=== PATIENT | male | born 1950 | race African-American/Black ===

== ENCOUNTER 2019-05-09 03:48 | Emergency (ER) | payer MEDICARE ==
[2019-05-09] MEDS ORDERED: NS(*) 0.9% 1000 ML BAG 1,000 ML IV ONE ×2 (03:54→06:20)
[2019-05-09] MEDS ORDERED: ONDANSETRON 4 MG/2 ML VIAL IVP ONE (03:55)
[2019-05-09] MEDS ORDERED: PANTOPRAZOLE SOD 40 MG IV VIAL IVP ONE (03:55)
--- NOTE | 2019-05-09 04:03 | ER Report ---
History and Physical Time Seen By MD: 03:57 HPI/ROS CHIEF COMPLAINT: Abdominal pain,? Bleeding ulcers HISTORY OF PRESENT ILLNESS: 68-year-old black male traveling from [place] to [place], [place] staying in a motel here in [place], has been sick for 3 days with severe upper abdominal pain with vomiting. Patient thinks his ulcers or bleeding. He has blood-tinged, clear emesis. Patient states he is a diabetic. EMS checked his fingerstick glucose at 223. Patient denies alcohol ingestion. EMS notes. Patient was clammy and diaphoretic on arrival. Patient denies history of cardiac disease. REVIEW OF SYSTEMS: Respiratory: No cough, no dyspnea. Cardiovascular: No chest pain, no palpitations. Gastrointestinal: As above Musculoskeletal: No back pain. Allergies: Coded Allergies: No Known Drug Allergies (Unverified , 05/09/19) Home Meds Active Scripts Oxycodone Hcl/Acetaminophen (PERCOCET 5-325 MG TABLET) 1 Each Tablet, 1 EACH PO Q4-6H PRN for PAIN, #10 Prov:KEKEJESSICA DO 05/09/19 Ondansetron 4 Mg Odt (ONDANSETRON 4 MG ODT) 4 Mg Tab.rapdis, 4 MG PO Q6H PRN for NAUSEA/VOMITING, #10 TAB Prov:JESSICA DAVIES Ok DO 05/09/19 Reported Medications Sucralfate (SUCRALFATE) 1 Gm/10 Ml Oral.susp, 10 ML PO Q6H 05/09/19 Metformin Hcl (METFORMIN HCL) 500 Mg Tablet, 1 TAB PO BID, TAB 05/09/19 Pantoprazole Sodium (PANTOPRAZOLE SODIUM) 40 Mg Tablet.dr, 40 MG PO QDAY PRN for GAS/HEARTBURN, TAB.SR 05/09/19 Past Medical/Surgical History Type II diabetes, only on metformin was previously on insulin, history of gastric ulcers on sucralfate and delgado protozoal. Hypertension Reviewed Nurses Notes: Yes Old Medical Records Reviewed: Yes Constitutional Vital Sign - Last 24 Hours 05/09/19 05/09/19 05/09/19 05/09/19 03:51 03:51 04:00 04:03 Temp 97.8 Pulse 93 ??? Resp 24 8 B/P (MAP) 192/114 182/122 (142) Pulse Ox 97 99 O2 Delivery Nasal Cannula O2 Flow Rate 4.0 05/09/19 05/09/19 05/09/19 05/09/19 04:18 04:30 04:30 04:33 Pulse 77 77 Resp 13 21 B/P (MAP) 166/94 (118) Pulse Ox 97 98 O2 Flow Rate 3.0 05/09/19 05/09/19 05/09/19 05/09/19 04:48 05:00 05:03 05:05 Pulse 68 81 68 Resp 18 20 16 B/P (MAP) 138/103 (115) Pulse Ox 99 90 99 05/09/19 05/09/19 05/09/19 05/09/19 05:10 05:25 05:30 05:40 Pulse 63 68 66 Resp 9 12 6 Pulse Ox 99 99 98 O2 Flow Rate 1.0 05/09/19 05/09/19 05/09/19 05/09/19 05:55 06:10 06:15 06:20 Pulse 79 79 75 76 Resp 11 16 11 10 Pulse Ox 92 94 93 89 05/09/19 05/09/19 05/09/19 05/09/19 06:25 06:30 06:35 06:38 Pulse 72 63 66 Resp 12 8 11 B/P (MAP) 135/104 (114) Pulse Ox 91 93 92 Physical Exam Vital signs stable, grossly hypertensive, afebrile General Appearance: The patient is alert, has no immediate need for airway protection and no current signs of toxicity. Moderate distress, actively vomiting. Blood-tinged watery fluid. Slightly pale appearing, skin: Dry HEENT: Pupils equal and round no injection. Anicteric sclera, oropharynx with mild erythema, no exudate or petechiae Respiratory: Chest is non tender, lungs are clear to auscultation. Cardiac: regular rate and rhythm Gastrointestinal: Abdomen is soft moderate epigastric tenderness, no masses, bowel sounds normal. Musculoskeletal: Neck: Neck is supple and non tender. Extremities have full range of motion and are non tender. No edema, no calf tenderness Skin: No rashes or lesions. DIFFERENTIAL DIAGNOSIS: After history and physical exam differential diagnosis was considered for abdominal pain including but not limited to appendicitis, cholecystitis, gastritis and urinary tract infection. Medical Decision Making Data Points Result Diagram: 05/09/19 0418 05/09/19 0418 Laboratory Hematology Test 05/09/19 04:18 05/09/19 06:40 Red Blood Count 5.12 M/uL (4.00-5.60) Mean Corpuscular Volume 83.6 fL (80.0-96.0) Mean Corpuscular Hemoglobin 27.5 pg (26.0-33.0) Mean Corpuscular Hemoglobin Concent 32.9 g/dL (32.0-36.0) Red Cell Distribution Width 18.1 % (11.5-14.5) Mean Platelet Volume 9.0 fL (7.2-11.1) Neutrophils (%) (Auto) 67.9 % (39.4-72.5) Lymphocytes (%) (Auto) 24.7 % (17.6-49.6) Monocytes (%) (Auto) 6.6 % (4.1-12.4) Eosinophils (%) (Auto) 0.1 % (0.4-6.7) Basophils (%) (Auto) 0.7 % (0.3-1.4) Nucleated RBC Relative Count (auto) 0.0 /100WBC Neutrophils # (Auto) 5.8 K/uL (2.0-7.4) Lymphocytes # (Auto) 2.1 K/uL (1.3-3.6) Monocytes # (Auto) 0.6 K/uL (0.3-1.0) Eosinophils # (Auto) 0.0 K/uL (0.0-0.5) Basophils # (Auto) 0.1 K/uL (0.0-0.1) Nucleated RBC Absolute Count (auto) 0.00 K/uL Prothrombin Time 15.7 seconds (12.0-14.4) Prothromb Time International Ratio 1.25 Activated Partial Thromboplast Time 48 seconds (23-35) Sodium Level 138 mmol/L (137-145) Potassium Level 3.4 mmol/L (3.5-5.0) Chloride Level 97 mmol/L (98-107) Carbon Dioxide Level 27 mmol/L (22-30) Blood Urea Nitrogen 34 mg/dl (9-21) Creatinine 0.90 mg/dl (0.66-1.25) Glomerular Filtration Rate Calc > 60.0 Random Glucose 205 mg/dl (75-110) Lactate 1.8 mmol/L (0.7-2.1) Calcium Level 8.9 mg/dl (8.4-10.2) Total Bilirubin 0.5 mg/dl (0.2-1.3) Aspartate Amino Transf (AST/SGOT) 20 U/L (0-35) Alanine Aminotransferase (ALT/SGPT) 24 U/L (0-56) Alkaline Phosphatase 84 U/L (0-126) C-Reactive Protein < 0.5 mg/dl (<1.0) Total Protein 7.7 g/dl (6.3-8.2) Albumin 4.5 g/dl (3.5-5.0) Amylase Level 178 U/L (0-110) Lipase 105 U/L (23-300) Urine Color Yellow Urine Clarity Clear Urine pH 7.0 pH (4.8-9.5) Urine Specific [place] 1.018 Urine Protein 30 mg/dL (NEGATIVE) Urine Glucose (UA) 150 mg/dL (NEGATIVE) Urine Ketones Trace mg/dL (NEGATIVE) Urine Blood Negative (NEGATIVE) Urine Nitrite Negative (NEGATIVE) Urine Bilirubin Negative (NEGATIVE) Urine Urobilinogen Negative mg/dL (0.2-1.9) Urine Leukocyte Esterase Negative (NEGATIVE) Urine RBC None /HPF (0-2/HPF) Urine WBC 1 /HPF (0-5/HPF) Urine Squamous Epithelial Cells Many /LPF (</=FEW) Urine Bacteria Negative /HPF (NONE-FEW) Urine Mucus None /HPF (NONE-FEW) Chemistry Test 05/09/19 04:18 05/09/19 06:40 White Blood Count 8.5 k/uL (4.5-11.0) Red Blood Count 5.12 M/uL (4.00-5.60) Hemoglobin 14.1 g/dL (14.0-18.0) Hematocrit 42.8 % (42.0-52.0) Mean Corpuscular Volume 83.6 fL (80.0-96.0) Mean Corpuscular Hemoglobin 27.5 pg (26.0-33.0) Mean Corpuscular Hemoglobin Concent 32.9 g/dL (32.0-36.0) Red Cell Distribution Width 18.1 % (11.5-14.5) Platelet Count 175 K/uL (150-450) Mean Platelet Volume 9.0 fL (7.2-11.1) Neutrophils (%) (Auto) 67.9 % (39.4-72.5) Lymphocytes (%) (Auto) 24.7 % (17.6-49.6) Monocytes (%) (Auto) 6.6 % (4.1-12.4) Eosinophils (%) (Auto) 0.1 % (0.4-6.7) Basophils (%) (Auto) 0.7 % (0.3-1.4) Nucleated RBC Relative Count (auto) 0.0 /100WBC Neutrophils # (Auto) 5.8 K/uL (2.0-7.4) Lymphocytes # (Auto) 2.1 K/uL (1.3-3.6) Monocytes # (Auto) 0.6 K/uL (0.3-1.0) Eosinophils # (Auto) 0.0 K/uL (0.0-0.5) Basophils # (Auto) 0.1 K/uL (0.0-0.1) Nucleated RBC Absolute Count (auto) 0.00 K/uL Prothrombin Time 15.7 seconds (12.0-14.4) Prothromb Time International Ratio 1.25 Activated Partial Thromboplast Time 48 seconds (23-35) Glomerular Filtration Rate Calc > 60.0 Lactate 1.8 mmol/L (0.7-2.1) Calcium Level 8.9 mg/dl (8.4-10.2) Total Bilirubin 0.5 mg/dl (0.2-1.3) Aspartate Amino Transf (AST/SGOT) 20 U/L (0-35) Alanine Aminotransferase (ALT/SGPT) 24 U/L (0-56) Alkaline Phosphatase 84 U/L (0-126) C-Reactive Protein < 0.5 mg/dl (<1.0) Total Protein 7.7 g/dl (6.3-8.2) Albumin 4.5 g/dl (3.5-5.0) Amylase Level 178 U/L (0-110) Lipase 105 U/L (23-300) Urine Color Yellow Urine Clarity Clear Urine pH 7.0 pH (4.8-9.5) Urine Specific [place] 1.018 Urine Protein 30 mg/dL (NEGATIVE) Urine Glucose (UA) 150 mg/dL (NEGATIVE) Urine Ketones Trace mg/dL (NEGATIVE) Urine Blood Negative (NEGATIVE) Urine Nitrite Negative (NEGATIVE) Urine Bilirubin Negative (NEGATIVE) Urine Urobilinogen Negative mg/dL (0.2-1.9) Urine Leukocyte Esterase Negative (NEGATIVE) Urine RBC None /HPF (0-2/HPF) Urine WBC 1 /HPF (0-5/HPF) Urine Squamous Epithelial Cells Many /LPF (</=FEW) Urine Bacteria Negative /HPF (NONE-FEW) Urine Mucus None /HPF (NONE-FEW) Coagulation Test 05/09/19 04:18 Prothrombin Time 15.7 seconds Prothromb Time International Ratio 1.25 Activated Partial Thromboplast Time 48 seconds Urinalysis Test 05/09/19 06:40 Urine Color Yellow Urine Clarity Clear Urine pH 7.0 pH (4.8-9.5) Urine Specific [place] 1.018 Urine Protein 30 mg/dL (NEGATIVE) Urine Glucose (UA) 150 mg/dL (NEGATIVE) Urine Ketones Trace mg/dL (NEGATIVE) Urine Blood Negative (NEGATIVE) Urine Nitrite Negative (NEGATIVE) Urine Bilirubin Negative (NEGATIVE) Urine Urobilinogen Negative mg/dL (0.2-1.9) Urine Leukocyte Esterase Negative (NEGATIVE) Urine RBC None /HPF (0-2/HPF) Urine WBC 1 /HPF (0-5/HPF) Urine Squamous Epithelial Cells Many /LPF (</=FEW) Urine Bacteria Negative /HPF (NONE-FEW) Urine Mucus None /HPF (NONE-FEW) EKG/Imaging EKG Interpretation 12 lead EK Rhythm: normal sinus rhythm with frequent premature ventricular complexes or fusion beats [place]: normal QRS: Prolonged QT ST segments: Nonspecific T wave abnormality, no old EKGs for comparison ED Course/Re-evaluation Clinical Indication for ER IV: Hydration, IV Access ED Course Patient was admitted to an examination room. H&P was done. The differential diagnoses was considered. Patient was brought in with gross vomiting. He was treated with IV fluids and Zofran. His diagnostic studies were relatively unremarkable. EKG and troponin were unremarkable for ischemic disease. He is a diabetic. His glucose is mildly elevated at 205. I suspect patient got severe food poisoning from traveling on the road. He'll be discharged home on Zofran and Percocet. He is advised a clear liquid diet for 24-48 hours. Decision to Disposition Date: May 09, 2019 Decision to Disposition Time: 06:05 Depart Departure Latest Vital Signs Vital Signs Date Time Temp Pulse Resp B/P (MAP) Pulse Ox O2 Delivery O2 Flow Rate FiO2 05/09/19 06:38 135/104 (114) 05/09/19 06:35 66 11 92 05/09/19 05:30 1.0 05/09/19 03:51 97.8 Nasal Cannula Impression: Primary Impression: Abdominal pain Additional Impressions: Vomiting Hematemesis Type II diabetes mellitus Hypertension History of gastric ulcer Constipation Condition: Improved Disposition: HOME OR SELF-CARE New Scripts Oxycodone Hcl/Acetaminophen (PERCOCET 5-325 MG TABLET) 1 Each Tablet 1 EACH PO Q4-6H PRN for PAIN, #10 Prov: JESSICA DAVIES 05/09/19 Ondansetron 4 Mg Odt (ONDANSETRON 4 MG ODT) 4 Mg Tab.rapdis 4 MG PO Q6H PRN for NAUSEA/VOMITING, #10 TAB Prov: JESSICA DAVIES 05/09/19 Patient Instructions: Abdominal Pain (ED), Clear Liquid Diet (ED) Additional Instructions: Follow clear liquid diet for 24 hours and advance to [place] diet, bananas, rice, applesauce and toast Go to the nearest ER for any worsening Take MiraLAX twice daily Problem Qualifiers Primary Impression: Abdominal pain Abdominal location: upper abdomen, unspecified Qualified Codes: R10.10 - Upper abdominal pain, unspecified Additional Impressions: Vomiting Vomiting type: unspecified Vomiting Intractability: intractable Nausea presence: with nausea Qualified Codes: R11.2 - Nausea with vomiting, unspecified Hematemesis Nausea presence: with nausea Qualified Codes: K92.0 - Hematemesis Type II diabetes mellitus Diabetes mellitus detention insulin use: without detention use Diabetes mellitus complication status: without complication Qualified Codes: E11.9 - Type 2 diabetes mellitus without complications Hypertension Hypertension type: essential hypertension Qualified Codes: I10 - Essential (primary) hypertension Constipation Constipation type: unspecified constipation type Qualified Codes: K59.00 - Constipation, unspecified JESSICA DAVIES May 09, 2019 04:03
[2019-05-09] MEDS ORDERED: fentaNYL CITR 100 MCG/2 ML AMP IVP ONE (04:30)
[2019-05-09] MEDS ORDERED: PROMETHAZINE 25 MG/ML 1 ML AMP IVP ONE (04:30)
[2019-05-09 04:34] LABS: PLATELET COUNT, AUTOMATED 175 K/uL (150-450)
[2019-05-09 04:42] LABS: INR 1.25
--- NOTE | 2019-05-09 04:51 | EKG ---
FACILITY: [facility] PATIENT NAME: ROJELIO VALENTIN : [id number] MR: [id number] V: [id number] EXAM DATE: ORDERING PHYSICIAN: JESSICA DAVIES TECHNOLOGIST: NASIMA Martínez Reason : Blood Pressure : / mmHG Vent. Rate : 090 BPM Atrial Rate : 090 BPM P-R Int : 132 ms QRS Dur : 076 ms QT Int : 404 ms P-R-T Axes : 078 064 086 degrees QTc Int : 494 ms Sinus rhythm and premature ventricular complexes or fusion complexes Left ventricular hypertrophy Nonspecific T wave abnormality Prolonged QT No previous ECGs available Confirmed by Alireza Andrade ([id number]) on 05/09/2019 6:14:24 AM Referred By: Confirmed By:Alireza Canseco
--- NOTE | 2019-05-09 05:09 | RADIOLOGY IMAGING REPORT ---
FACILITY: [facility] PATIENT NAME: Tex Kruse : 1950 MR: [id number] V: [id number] EXAM DATE: ORDERING PHYSICIAN: JESSICA DAVIES TECHNOLOGIST: Location: [facility] Patient: Tex Kruse : 1950 Visit/Account:[id number] Date of Sevice: 05/09/2019 INDICATION: severe epigastric pain EXAM DATE: 05/09/2019 4:11 AM COMPARISON: None. FINDINGS: AP view the chest with AP supine view of the abdomen. The lungs are well-expanded and clear. No pleural effusion or pneumothorax. Heart size is normal. Bowel gas pattern is nonobstructive. No pneumatosis, pneumoperitoneum or portal venous gas. No eviden ce of large volume ascites or mass. Moderate amount of stool in the colon. Endoscopic surgical clip over the left upper quadrant. IVC filter. Multiple calcific densities over the upper midabdomen. No acute osseous abnormality. IMPRESSION: 1. Moderate amount of stool in the colon, question constipation. 2. Nonspecific calcifications over the mid upper abdomen. Question vascular calcifications, potenti ally renal calculi, calcified lymph nodes and/or soft tissue calcifications. 3. No acute cardiopulmonary abnormality. Report Dictated By: Dima Duncan MD at 05/09/2019 5:00 AM Report E-Signed By: Dima Duncan MD at 05/09/2019 5:05 AM WSN:[id number]
--- NOTE | 2019-05-09 05:10 | RADIOLOGY IMAGING REPORT ---
FACILITY: [facility] PATIENT NAME: Tex Kruse : 1950 MR: [id number] V: [id number] EXAM DATE: ORDERING PHYSICIAN: JESSICA DAVIES TECHNOLOGIST: Location: [facility] Patient: Tex Kruse : 1950 Visit/Account:[id number] Date of Sevice: 05/09/2019 INDICATION: severe epigastric pain EXAM DATE: 05/09/2019 4:11 AM COMPARISON: None. FINDINGS: AP view the chest with AP supine view of the abdomen. The lungs are well-expanded and clear. No pleural effusion or pneumothorax. Heart size is normal. Bowel gas pattern is nonobstructive. No pneumatosis, pneumoperitoneum or portal venous gas. No eviden ce of large volume ascites or mass. Moderate amount of stool in the colon. Endoscopic surgical clip over the left upper quadrant. IVC filter. Multiple calcific densities over the upper midabdomen. No acute osseous abnormality. IMPRESSION: 1. Moderate amount of stool in the colon, question constipation. 2. Nonspecific calcifications over the mid upper abdomen. Question vascular calcifications, potenti ally renal calculi, calcified lymph nodes and/or soft tissue calcifications. 3. No acute cardiopulmonary abnormality. Report Dictated By: Dima Duncan MD at 05/09/2019 5:00 AM Report E-Signed By: Dima Duncan MD at 05/09/2019 5:05 AM WSN:[id number]
[2019-05-09] MEDS ORDERED: METF-450 PO (05:24)
[2019-05-09] MEDS ORDERED: PANT40TA65 PO (05:24)
[2019-05-09] MEDS ORDERED: SUCR1ORA13 PO (05:24)
[2019-05-09] MEDS ORDERED: OXYC-865 PO (06:18)
[2019-05-09] MEDS ORDERED: ONDA4TAB9 PO (06:18)
[2019-05-09] MEDS ORDERED: ONDANSETRON 4 MG ODT TH SL ONE (06:20)
[2019-05-09] MEDS ORDERED: oxyCODONE/ACETAMIN 5/325MG TH 2 TAB/BOTTLE PO ONE (06:20)
[2019-05-09 06:38] VITALS: BP 135/104
== END 2019-05-09 07:12 | disposition home or self-care (01) ==
LOC: ER 04:31
DX: E11.9 Type 2 diabetes mellitus without complications (principal); I10 Essential (primary) hypertension; K59.00 Constipation, unspecified; R10.10 Upper abdominal pain, unspecified; R11.2 Nausea with vomiting, unspecified; K92.0 Hematemesis
CPT/HCPCS: 71045; 74018; 81001; 82150; 83605; 83690; 85025; 85610; 85730; 86140; 86850; 86900; 86901; 86920; 93005; 96361; 96374; 96375; 99284; C9113; J2405; J2550; J3010; J7030; Q0162; 82040; 82247; 82310; 82374; 82435; 82565; 82947; 84075; 84132; 84155; 84295; 84450; 84460; 84520; S0119

== ENCOUNTER → 2019-05-09 | Outpatient (CLI) | payer MEDICARE ==
[~2019-05-09] MED LIST: METF-450 PO; ONDA4TAB9 PO; OXYC-865 PO; PANT40TA65 PO; SUCR1ORA13 PO
== END ==
LOC: AMB 03:27
PROVIDERS: ATTEND Nurse Practitioner
DX: R10.9 Unspecified abdominal pain (principal); R11.2 Nausea with vomiting, unspecified
CPT/HCPCS: A0425; A0427